=== PATIENT | female | born 1995 | race Caucasian/White ===

== ENCOUNTER 2019-10-01 22:23 | Emergency (ER) | payer MEDICAID ==
--- NOTE | 2019-10-01 23:00 | EDM.PDOC ---
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 She responded to an antibiotic last time she had pain and was unable to get to a dentist because she was in treatment. She has no significant swelling or fever. The teeth that are painful are her right mandibular incisors and canines Onset: Gradual Duration: Day(s): (Pain has been increasing for the past several days) Associated Symptoms: Reports: No Other Symptoms right bottom tooth Pain Score (Numeric/FACES): 9 - Related Data Allergies Allergy/AdvReac Type Severity Reaction Status Date / Time No Known Allergies Allergy Verified 10/01/19 22:32 Home Meds: Home Meds Acetaminophen [Tylenol Extra Strength] 500 mg PO ASDIRECTED PRN 10/01/19 [History] Ibuprofen [Motrin] 800 mg PO ASDIRECTED PRN 10/01/19 [History] busPIRone [Buspar] 15 mg PO BID 10/01/19 [History] Past Medical History Psychiatric History: Reports: Addiction, Anxiety, Depression, Other (See Below) Other Psychiatric History: Meth Social & Family History - Tobacco Use Smoking Status *Q: Current Every Day Smoker Years of Tobacco use: 7 Packs/Tins Daily: 1 - Caffeine Use Caffeine Use: Reports: Coffee, Soda - Recreational Drug Use Recreational Drug Use: Yes Drug Use in Last 12 Months: Yes Recreational Drug Type: Reports: Methamphetamine ED ROS ENT - Review of Systems Review Of Systems: See Below Constitutional: Denies: Fever, Chills HEENT: Reports: Dental Pain. Denies: Throat Pain Respiratory: Denies: Shortness of Breath Cardiovascular: Denies: Chest Pain GI/Abdominal: Denies: Nausea, Vomiting Skin: Denies: Erythema Neurological: Denies: Headache ED EXAM, ENT - Physical Exam Exam: See Below Exam Limited By: No Limitations General Appearance: Alert, No Apparent Distress Mouth/Throat: Other (Advanced dental decay along the gingiva of the incisors and canines of the mandible especially on the right side. The canines are tender to percussion but there is no significant erythema or swelling.) Course - Vital Signs Last Recorded V/S: Last Vital Signs Temp 97.7 F 10/01/19 22:39 Pulse 78 10/01/19 22:39 Resp 16 10/01/19 22:39 BP 134/77 10/01/19 22:39 Pulse Ox 98 10/01/19 22:39 - Re-Assessments/Exams Free Text/Narrative Re-Assessment/Exam: 10/01/19 22:59 Patient will be put on 300 mg of clindamycin 3 times a day for the next 5 days, she can recheck with a dentist after discharge. Return if worsening such as facial swelling or redness, fever despite. Continue ibuprofen and Tylenol. Departure - Departure Time of Disposition: 23:07 Disposition: DC/Tfer to Other 70 Clinical Impression: Dental abscess - Discharge Information Instructions: Dental Abscess Referrals: PCP,None [Primary Care Provider] - Forms: ED Department Discharge Care Plan Goals: Take antibiotic 3 times a day until gone [ibuprofen and Tylenol for pain and return if worsening such as facial swelling, fever or redness despite medication. Otherwise recheck with a dentist after your discharge if still having problems. Sepsis Event Note (ED) - Evaluation Sepsis Screening Result: No Definite Risk - Focused Exam Vital Signs: Vital Signs Temp Pulse Resp BP Pulse Ox 10/01/19 22:39 97.7 F 78 16 134/77 98 10/01/19 22:33 97.7 F 78 16 134/77 98
== END 2019-10-01 23:08 | disposition other institution (70) ==
LOC: JP.ED 22:23
DX: K04.7 Periapical abscess without sinus (principal); K02.9 Dental caries, unspecified; F41.9 Anxiety disorder, unspecified; F32.9 Major depressive disorder, single episode, unspecified; F17.210 Nicotine dependence, cigarettes, uncomplicated; Z79.899 Other long term (current) drug therapy
CPT/HCPCS: 99282; 99283